=== PATIENT | female | born 1995 | race Caucasian/White ===

== ENCOUNTER 2016-11-25 22:40 | Observation (INO) | payer OTHER ==
--- NOTE | 2016-11-26 00:08 | ED ---
Psych HPI - General Source: patient, RN notes reviewed Mode of arrival: EMS <Tona Kebede - Last Filed: 11/26/16 04:12> <Pedro Bell - Last Filed: 11/26/16 04:29> - General Chief Complaint: Psychiatric Symptoms Stated Complaint: overdose Time Seen by Provider: 11/25/16 23:15 - History of Present Illness Initial Comments: Patient is a 20-year-old female presents to the emergency room for psych evaluation. Patient states she has a history of anxiety and depression. Patient states she was recently evicted from her apartment has been increasingly depressed. Patient states she feels like she is trapped and she will never move out from the hotel. Patient states today her depression escalated and she decided to take all of her iron pills in 1 sitting around 9PM. Patient states she took about 100 pills that are 65 mg per tab. Patient states she's having 6 out of 10 epigastric pain with slight nausea. Patient states she mainly took the pills as a cry for help. Patient states been having on-and-off suicidal ideations. Patient denies homicidal ideations. Patient denies visual or auditory hallucinations. Patient states she following up with a counselor every few weeks which was helping her. Patient states she hasn't seen her counselor in about a week. Patient also states she had about 4 shots of whiskey after taking the iron tabs. Patient also states she recently smoked marijuana. Patient denies any other illicit drug use. (Tona Kebede) - Related Data Home Medications Medication Instructions Recorded Confirmed No Known Home Medications [No 11/25/16 11/25/16 Known Home Medications] Allergies Allergy/AdvReac Type Severity Reaction Status Date / Time No Known Allergies Allergy Verified 11/25/16 23:21 Review of Systems ROS Other: All systems not noted in ROS Statement are negative. <Tona Kebede - Last Filed: 11/26/16 04:12> ROS Other: All systems not noted in ROS Statement are negative. <Pedro Bell - Last Filed: 11/26/16 04:29> ROS Statement: Those systems with pertinent positive or pertinent negative responses have been documented in the HPI. Past Medical History Past Medical History: No Reported History History of Any Multi-Drug Resistant Organisms: None Reported Past Surgical History: No Surgical Hx Reported Past Anesthesia/Blood Transfusion Reactions: No Reported Reaction Past Psychological History: Anxiety, Depression Smoking Status: Former smoker Past Alcohol Use History: Occasional Past Drug Use History: Marijuana - Past Family History Mother Family Medical History: No Reported History <Tona Kebede - Last Filed: 11/26/16 04:12> General Exam Limitations: no limitations General appearance: alert, in no apparent distress Head exam: Present: atraumatic, normocephalic, normal inspection Eye exam: Present: normal appearance ENT exam: Present: normal exam Neck exam: Present: normal inspection Respiratory exam: Present: normal lung sounds bilaterally. Absent: respiratory distress Cardiovascular Exam: Present: regular rate, normal rhythm, normal heart sounds GI/Abdominal exam: Present: soft, tenderness (Upper midepigastric), normal bowel sounds. Absent: distended, guarding, rebound, rigid Extremities exam: Present: normal inspection Back exam: Present: normal inspection Neurological exam: Present: alert, oriented X3, CN II-XII intact, normal gait Psychiatric exam: Present: normal affect, normal mood Skin exam: Present: warm, dry, intact, normal color. Absent: rash <Tona Kebede - Last Filed: 11/26/16 04:12> <Pedro Bell - Last Filed: 11/26/16 04:29> - General Exam Comments Initial Comments: Sitting in exam room, no acute distress. (Tona Kebede) Course <Tona Kebede - Last Filed: 11/26/16 04:12> <Pedro Bell - Last Filed: 11/26/16 04:29> Vital Signs 11/25/16 11/26/16 23:00 04:04 Temperature 98.3 F 98.7 F Pulse Rate 95 82 Respiratory 18 18 Rate Blood Pressure 134/88 125/61 O2 Sat by Pulse 95 98 Oximetry - Reevaluation(s) Reevaluation #1: 11/26/16 04:28 I did personally evaluate the patient tolerated do agree with the assessment and plan the patient is asymptomatic and at this time . (Pedro Bell) Medical Decision Making - Lab Data Result diagrams: 11/26/16 00:51 - Radiology Data Radiology results: report reviewed, image reviewed <Tona Kebede - Last Filed: 11/26/16 04:12> - Lab Data Result diagrams: 11/26/16 00:51 <Pedro Bell - Last Filed: 11/26/16 04:29> - Medical Decision Making Patient's 20-year-old female presents to the emergency room for psychiatric evaluation. Patient has a history of anxiety and depression. Patient states she overdosed on iron pills around 9 PM this evening. Poison control was contacted. Poison control advised to order serum alcohol level, CMP, urinalysis , salicylates and acetaminophen and iron levels 6 hours after ingestion of iron pills. Patient's iron level is elevated at 364. Patient will be admitted under observation. Patient complaining of minor epigastric pain at the moment. Poison control recommended that patient take GoLYTELY. Poison control recommended that iron level be checked every 2-3 hours. Case discussed with Dr. Bell. Patient will need to be reevaluated by psych as soon as iron levels are controlled. (Tona Kebede) - Lab Data Lab Results 11/25/16 11/25/16 11/25/16 Range/Units 23:01 23:01 23:01 Sodium (137-145) mmol/L Potassium (3.5-5.1) mmol/L Chloride (98-107) mmol/L Carbon Dioxide (22-30) mmol/L Anion Gap mmol/L BUN (7-17) mg/dL Creatinine (0.52-1.04) mg/dL Est GFR (MDRD) Af Amer (>60 ml/min/1.73 sqM) Est GFR (MDRD) Non-Af (>60 ml/min/1.73 sqM) Glucose (74-99) mg/dL Calcium (8.4-10.2) mg/dL Iron (37-170) ug/dL Total Bilirubin (0.2-1.3) mg/dL AST (14-36) U/L ALT (9-52) U/L Alkaline Phosphatase (38-126) U/L Total Protein (6.3-8.2) g/dL Albumin (3.5-5.0) g/dL Urine Color Light Yellow Urine Appearance Clear (Clear) Urine pH 5.5 (5.0-8.0) Ur Specific [place] 1.007 (1.001-1.035) Urine Protein Negative (Negative) Urine Glucose (UA) Negative (Negative) Urine Ketones Negative (Negative) Urine Blood Negative (Negative) Urine Nitrite Negative (Negative) Urine Bilirubin Negative (Negative) Urine Urobilinogen <2.0 (<2.0) mg/dL Ur Leukocyte Esterase Negative (Negative) Urine HCG, Qual Not Detected (Not Detectd) Salicylates mg/dL Urine Opiates Screen Not Detected (NotDetected) Ur Oxycodone Screen Not Detected (NotDetected) Urine Methadone Screen Not Detected (NotDetected) Ur Propoxyphene Screen Not Detected (NotDetected) Acetaminophen ug/mL Ur Barbiturates Screen Not Detected (NotDetected) U Tricyclic Antidepress Not Detected (NotDetected) Ur Phencyclidine Scrn Not Detected (NotDetected) Ur Amphetamines Screen Not Detected (NotDetected) U Methamphetamines Scrn Not Detected (NotDetected) U Benzodiazepines Scrn Not Detected (NotDetected) Urine Cocaine Screen Not Detected (NotDetected) U Marijuana (THC) Screen Detected H (NotDetected) Serum Alcohol mg/dL 11/26/16 11/26/16 Range/Units 00:51 03:25 Sodium 141 (137-145) mmol/L Potassium 4.0 (3.5-5.1) mmol/L Chloride 104 (98-107) mmol/L Carbon Dioxide 26 (22-30) mmol/L Anion Gap 11 mmol/L BUN 13 (7-17) mg/dL Creatinine 0.60 (0.52-1.04) mg/dL Est GFR (MDRD) Af Amer >60 (>60 ml/min/1.73 sqM) Est GFR (MDRD) Non-Af >60 (>60 ml/min/1.73 sqM) Glucose 104 H (74-99) mg/dL Calcium 9.8 (8.4-10.2) mg/dL Iron 364 H (37-170) ug/dL Total Bilirubin 0.3 (0.2-1.3) mg/dL AST 19 (14-36) U/L ALT 27 (9-52) U/L Alkaline Phosphatase 59 (38-126) U/L Total Protein 7.6 (6.3-8.2) g/dL Albumin 4.4 (3.5-5.0) g/dL Urine Color Urine Appearance (Clear) Urine pH (5.0-8.0) Ur Specific [place] (1.001-1.035) Urine Protein (Negative) Urine Glucose (UA) (Negative) Urine Ketones (Negative) Urine Blood (Negative) Urine Nitrite (Negative) Urine Bilirubin (Negative) Urine Urobilinogen (<2.0) mg/dL Ur Leukocyte Esterase (Negative) Urine HCG, Qual (Not Detectd) Salicylates <1.0 mg/dL Urine Opiates Screen (NotDetected) Ur Oxycodone Screen (NotDetected) Urine Methadone Screen (NotDetected) Ur Propoxyphene Screen (NotDetected) Acetaminophen <10.0 ug/mL Ur Barbiturates Screen (NotDetected) U Tricyclic Antidepress (NotDetected) Ur Phencyclidine Scrn (NotDetected) Ur Amphetamines Screen (NotDetected) U Methamphetamines Scrn (NotDetected) U Benzodiazepines Scrn (NotDetected) Urine Cocaine Screen (NotDetected) U Marijuana (THC) Screen (NotDetected) Serum Alcohol <10 mg/dL Disposition Decision Date: 11/26/16 <Tona Kebede - Last Filed: 11/26/16 04:12> <Pedro Bell - Last Filed: 11/26/16 04:29> Clinical Impression: Iron product overdose, Depression Disposition: ADMITTED IP TO THIS [facility] Condition: Stable
[2016-11-26 01:13] LABS: ALT 27 U/L (9-52); AST 19 U/L (14-36); Acetaminophen <10.0 ug/mL; Alcohol <10 mg/dL; Alkaline Phosphatase 59 U/L (38-126); Anion Gap 11 mmol/L; Blood Urea Nitrogen 13 mg/dL (7-17); Calcium 9.8 mg/dL (8.4-10.2); Carbon Dioxide 26 mmol/L (22-30); Chloride 104 mmol/L (98-107); Glucose 104 mg/dL (74-99); Non-African American GFR(MDRD) >60 (>60 ml/min/1.73 sqM); Salicylate <1.0 mg/dL; Sodium 141 mmol/L (137-145); Total Bilirubin 0.3 mg/dL (0.2-1.3); Total Protein 7.6 g/dL (6.3-8.2)
[2016-11-26 01:20] LABS: Appearance,Urine Clear (Clear); Bilirubin,Urine Negative (Negative); Glucose,Urine (UA) Negative (Negative); Ketones,Urine Negative (Negative); Leukocyte Esterase,Urine Negative (Negative); Nitrite,Urine Negative (Negative); PH, Urine 5.5 (5.0-8.0); Protein,Urine Negative (Negative); Specific Gravity,Urine 1.007 (1.001-1.035); UA Billing (MACRO vs. MICRO) CHEM; Urobilinogen,Urine <2.0 mg/dL (<2.0)
[2016-11-26] MEDS ORDERED: PEG 3350-NA SULF,BICARB,CL/KCL 4,000 ML BOTTLE PO ONE (01:23)
--- NOTE | 2016-11-26 01:23 | XR ---
EXAM: XR Abdomen, 1 view CLINICAL HISTORY: Reason: Pain TECHNIQUE: Frontal view of the abdomen/pelvis with upright view of the abdomen. COMPARISON: No relevant prior studies available. FINDINGS: Free air: None. Gastrointestinal tract: Unremarkable. No dilation. Bones: Unremarkable. No acute fracture. IMPRESSION: Normal abdomen and pelvis.
[2016-11-26] MEDS ORDERED: ONDANSETRON 4 MG/2 ML VIAL IVP PRN (04:09)
[2016-11-26] MEDS ORDERED: NALOXONE 0.4 MG/ML 1 ML VIAL IV PRN (04:09)
[2016-11-26] MEDS ORDERED: SODIUM CHLORIDE 0.9% 1,000 ML IV SCH (04:15)
[2016-11-26 04:53] VITALS: BMI 31.1
[2016-11-26 05:14] VITALS: RESP 16
[2016-11-26 06:01] LABS: Anion Gap 12 mmol/L; Blood Urea Nitrogen 12 mg/dL (7-17); Calcium 9.7 mg/dL (8.4-10.2); Carbon Dioxide 24 mmol/L (22-30); Chloride 104 mmol/L (98-107); Glucose 102 mg/dL (74-99); Iron 341 ug/dL (37-170); Non-African American GFR(MDRD) >60 (>60 ml/min/1.73 sqM); Potassium 3.9 mmol/L (3.5-5.1); Sodium 140 mmol/L (137-145)
[2016-11-26 11:45] LABS: Basophils % (A) 1 %; CH 29.4; CHCM 32.5; Eosinophils # (A) 0.1 k/uL (0-0.7); Eosinophils % (A) 2 %; HCT 40.7 % (34.0-46.0); HDW 2.27; HGB 13.4 gm/dL (11.4-16.0); Luc # (Auto) 0.19; Luc % (Auto) 3; Lymphocytes # (A) 2.6 k/uL (1.0-4.8); Lymphocytes % (A) 36 %; Mean Platelet Volume 6.4; Monocytes # (A) 0.5 k/uL (0-1.0); Monocytes % (A) 7 %; Neutrophils # (A) 3.8 k/uL (1.3-7.7); Neutrophils % (A) 53 %; RBC 4.48 m/uL (3.80-5.40); RDW 14.1 % (11.5-15.5); WBC 7.2 k/uL (3.8-10.6)
[2016-11-26 11:47] VITALS: PULSE 84
[2016-11-26 11:56] LABS: ALT 18 U/L (9-52); AST 18 U/L (14-36); Alkaline Phosphatase 50 U/L (38-126); Anion Gap 9 mmol/L; Blood Urea Nitrogen 13 mg/dL (7-17); Calcium 9.4 mg/dL (8.4-10.2); Carbon Dioxide 23 mmol/L (22-30); Chloride 106 mmol/L (98-107); Glucose 92 mg/dL (74-99); Non-African American GFR(MDRD) >60 (>60 ml/min/1.73 sqM); Potassium 4.4 mmol/L (3.5-5.1); Sodium 138 mmol/L (137-145); Total Bilirubin 0.4 mg/dL (0.2-1.3)
[2016-11-26 12:05] LABS: Iron 153 ug/dL (37-170)
[2016-11-26 16:08] VITALS: BP 139/63; TEMP 98.7
--- NOTE | 2016-11-26 18:47 | HP ---
DATE OF ADMISSION: 11/26/2016 This 20-year-old woman who was being followed by Dr. Myrick had a past medical history of depression, history of anxiety, history of THC, remote history of nicotine dependence. The patient apparently living in a hotel with the family because of living situation, the patient consumed a whole bottle of iron tablets and most 100 pills of 65 mg each. The patient came in with severe epigastric pain, nausea. Patient admitted for further evaluation and treatment. There is no history of fever, rigors or chills. No history of headache, loss of consciousness or seizures at this time. Poison control was called. Iron level was found to be 341 indicating iron overload. Otherwise, the patient is being closely monitored. Past medical history: History of anxiety, depression, history of nicotine dependence. History of THC. The home medications are none. ALLERGIES: None. FAMILY HISTORY: History of bipolar, depression, diabetes type 2. SOCIAL HISTORY: Previous history of smoking, history of THC. REVIEW OF SYSTEMS: ENT: No diminished vision. No diminished hearing. CARDIOVASCULAR: No angina or palpitations. RESPIRATORY: no cough. GI: As mentioned earlier. : No dysuria. Nervous system: no numbness or weakness. ALLERGY/IMMUNOLOGY: No asthma or hayfever. MUSCULOSKELETAL: As mentioned earlier. HEMATOLOGY: No history of anemia. ENDOCRINE: No history of diabetes, hypothyroidism. CONSTITUTIONAL: as mentioned earlier. DERMATOLOGY: Negative. RHEUMATOLOGY: Negative. PSYCHIATRY: As mentioned earlier. PHYSICAL EXAMINATION: Alert and oriented times three. Pulse is 84, blood pressure 110/58, respirations 16, temperature 98.4. Pulse ox 97% on room air. HEENT: Conjunctivae normal. NECK: No jugular venous distention. CARDIOVASCULAR: S1, S2 normal. RESPIRATORY: Breaths sounds diminished in the bases. A few rhonchi. No crackles. ABDOMEN: Soft, nontender. No mass palpable. LEGS: No edema. No swelling. Nervous system: Higher functions as mentioned earlier. Moves all four limbs. No focal deficits. LYMPHATICS: No lymph nodes palpable in the neck, axillae or groin. SKIN: No ulcer, rash or bleeding. Labs are CBC, BMP within normal limits. Iron 223. ASSESSMENT: 1. Status post over dosage with iron pills. 2. High serum iron levels. 3. Anxiety, depression, not otherwise specified. 4. History of nicotine dependence. 5. History of THC. 6. FULL CODE. RECOMMENDATIONS AND DISCUSSION: In this 20-year-old woman who presented with multiple complex medical issues, we will monitor the patient closely. Continue the current medications. Continue symptomatic treatment. Otherwise, at this time, I recommend psychiatric consultation and continue to follow with poison control. Repeat iron levels. Prognosis guarded because of multiple complex medical issues. Further recommendations to follow. A copy of dictation being forwarded to Dr. Myrick who is the primary physician. ERIKAD
--- NOTE | 2016-11-27 09:45 | DS ---
DATE OF ADMISSION: 11/26/2016 DATE OF DISCHARGE: 11/26/2016 FINAL DIAGNOSES: 1. Acute iron tablet overdose. 2. Depression. 3. Anxiety, not otherwise specified. 4. Nicotine dependence. 5. History of tetrahydrocannabinol. DISCHARGE DISPOSITION: The patient is being transferred to inpatient mental health unit. HISTORY OF PRESENT ILLNESS: This 20-year-old woman was admitted with acute iron overdosage and poisoning and iron level of 341 improved to 153. Poison control was contacted. The patient improved significantly. Psychiatric recommended inpatient psych transfer. On exam, vitals are stable. CARDIOVASCULAR: S1, S2. ABDOMEN: Soft. NERVOUS SYSTEM: No focal deficits. Please refer to the medication reconciliation for the current medication list.
== END 2016-11-26 17:25 ==
LOC: EC 22:40 → 3OBS 11-26 04:09
PROVIDERS: ADMIT Hospitalist; ATTEND Hospitalist
DX: T45.4X2A Poisoning by iron and its compounds, intentional self-harm, initial encounter (principal); R11.0 Nausea; F12.90 Cannabis use, unspecified, uncomplicated; F17.200 Nicotine dependence, unspecified, uncomplicated; F32.9 Major depressive disorder, single episode, unspecified; R45.851 Suicidal ideations; R10.13 Epigastric pain
CPT/HCPCS: 99285 ×2; 82075; 36415; 80053; 80048; 83540; 85025; 81003; 81025; 80306; 83520 ×2; 80320; 74000; G0378

== ENCOUNTER 2016-11-26 17:09 | Inpatient (IN) | payer MEDICAID ==
[2016-11-26 17:31] VITALS: RESP 16
[2016-11-26 18:00] VITALS: BMI 31.8
[2016-11-26] MEDS ORDERED: MAGNESIUM HYDROXIDE 2,400 MG/10 ML CUP PO PRN (18:19)
[2016-11-26] MEDS ORDERED: LORazepam 1 MG TAB PO PRN (18:19)
[2016-11-26] MEDS ORDERED: MAG HYDROX/AL HYDROX/SIMETH 30 ML CUP PO PRN (18:19)
[2016-11-26] MEDS ORDERED: ACETAMINOPHEN TAB 325 MG TAB PO PRN (18:19)
[2016-11-27] MEDS: CITALOPRAM HYDROBROMIDE 20 MG TAB PO SCH (11:36)
[2016-11-27 15:43] LABS: Appearance,Urine Clear (Clear); Bilirubin,Urine Negative (Negative); Glucose,Urine (UA) Negative (Negative); Ketones,Urine 1+ (Negative); Leukocyte Esterase,Urine Small (Negative); Mucus,Urine Rare /hpf; Nitrite,Urine Negative (Negative); PH, Urine 5.5 (5.0-8.0); Particle Count 3250; Protein,Urine Negative (Negative); RBC,Urine 2 /hpf (0-5); Specific Gravity,Urine 1.009 (1.001-1.035); Squamous Epithelial Cell,Urine 3 /hpf (0-4); UA Billing (MACRO vs. MICRO) MICRO; Urobilinogen,Urine <2.0 mg/dL (<2.0); WBC,Urine 3 /hpf (0-5)
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
[2016-11-27] MEDS: PANTOPRAZOLE 40 MG TABLET PO SCH (18:58)
[2016-11-27] MEDS ORDERED: traZODone HCL 50 MG TAB PO SCH (21:00)
[2016-11-27] MEDS: SULFAMETHOX-TMP 800-160MG 1 EACH TAB PO SCH (22:06)
[2016-11-28 06:58] VITALS: BP 106/53; PULSE 92; TEMP 98.2
--- NOTE | 2016-11-28 07:35 | CONS ---
DATE OF CONSULTATION: REASON FOR CONSULTATION: Advice regarding history of recent iron overdose and other medical issues requested by Psychiatry. HISTORY OF PRESENT ILLNESS: This 20-year-old woman with a past medical history of multiple medical problems including anxiety and depression, history of nicotine dependence, history of THC being followed with Dr. Myrick in the outpatient setting was recently admitted with acute iron tablet overdosage to [facility]. The patient was monitored closely. Poison Control was contacted. Iron levels came down. The patient is being transferred to psych floor at this time. There is no history of any fevers. No history of headache, loss of consciousness or seizures. PAST MEDICAL HISTORY: History of anxiety, depression, nicotine dependence, THC. MEDICATIONS PRIOR TO ADMISSION: None. ALLERGIES: None. FAMILY HISTORY: History of diabetes mellitus and bipolar depression. SOCIAL HISTORY: History of smoking. History of EtOH. REVIEW OF SYSTEMS: ENT: No diminishing hearing or diminished vision. CARDIOVASCULAR: No angina or palpitations. RESPIRATORY: No cough or hemoptysis. GI: No nausea. : No dysuria. NERVOUS SYSTEM: No numbness or weakness. ALLERGY/IMMUNOLOGY: No asthma. MUSCULOSKELETAL: As mentioned earlier. HEMATOLOGY/ONCOLOGY: No history of anemia. ENDOCRINE: No history of diabetes mellitus or hypothyroidism. CONSTITUTIONAL: As mentioned earlier. DERMATOLOGY: Negative. RHEUMATOLOGY: Negative. PSYCHIATRY: As mentioned earlier. PHYSICAL EXAMINATION: The patient is alert and oriented x3. Pulse 84, blood pressure 110/60, respirations 16, temperature 98.1, pulse ox 98% on room air. HEENT: Conjunctivae normal. NECK: No jugular venous distention. CARDIOVASCULAR: S1 and S2, muffled. RESPIRATORY: Breath sounds diminished at the bases. No rhonchi, no crackles. ABDOMEN: Soft, nontender. No mass palpable. No guarding or rigidity. LEGS: No edema, no swelling. NERVOUS SYSTEM: Cranial nerves 2 through 12 grossly intact. Moves all 4 limbs. Power is normal. Reflexes are normal. No sensory . Gait is normal. SKIN: No ulcers, rashes or bleeding. LABS: TSH is 1.460 and showed leukocyte esterase. ASSESSMENT: 1. Status post overdose and acute iron overdose. 2. Depression. 3. Anxiety, not otherwise specified. 4. History nicotine dependence. 5. History of THC. 6. Possible urinary tract infection. RECOMMENDATIONS AND DISCUSSION: In this 20-year-old woman who presented with multiple medical problems, will monitor the patient closely. Continue the current medications. Continue symptomatic treatment. I would also recommend continue with current medication and short course of antibiotics may be recommended. Otherwise Protonix also may be continued. Will follow the patient closely with you and patient was asked to follow with Dr. Myrick closely after discharge. MOE
[2016-11-28] MEDS: CITALOPRAM HYDROBROMIDE 20 MG TAB PO SCH (09:38)
[2016-11-28] MEDS: PANTOPRAZOLE 40 MG TABLET PO SCH (09:38)
[2016-11-28] MEDS: SULFAMETHOX-TMP 800-160MG 1 EACH TAB PO SCH (09:39)
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
== END 2016-11-28 17:20 | disposition home or self-care (01) | DRG 881 ==
LOC: 3MHU 17:26
PROVIDERS: ADMIT Psychiatry & Neurology Psychiatry; ATTEND Psychiatry & Neurology Psychiatry
DX: F32.9 Major depressive disorder, single episode, unspecified (principal); F12.90 Cannabis use, unspecified, uncomplicated; F43.10 Post-traumatic stress disorder, unspecified; Z87.891 Personal history of nicotine dependence; Z91.5 Personal history of self-harm
CPT/HCPCS: 81001; 81025; 84443

== ENCOUNTER 2019-04-25 09:06 | Inpatient (IN) | payer OTHER ==
[2019-04-25] MEDS ORDERED: LIDOCAINE 0.5% (PF) 5 MG/ML (50 ML SDV) SQ PRN (09:44)
[2019-04-25] MEDS ORDERED: CARBOPROST TROMETHAMINE 250 MCG/ML 1 ML AMP IM PRN (09:44)
[2019-04-25] MEDS ORDERED: TERBUTALINE 1 MG/ML VIAL SQ PRN (09:44)
[2019-04-25] MEDS ORDERED: OXYTOCIN 10 UNIT/ML 1 ML VIAL IM PRN (09:44)
[2019-04-25] MEDS ORDERED: METHYLERGONOVINE 0.2 MG/ML 1 ML AMP IM PRN (09:44)
[2019-04-25] MEDS ORDERED: OXYTOCIN 30 UNITS/500 ML NS 30 UNIT in SALINE 1 500ML.BAG IV SCH (09:45)
[2019-04-25 10:31] VITALS: BMI 40.6
[2019-04-25] MEDS: LACTATED RINGERS 1,000 ML IV SCH ×2 (10:33→12:49)
[2019-04-25 10:56] LABS: Anisocytosis Slight; Basophils % (A) 0 %; Eosinophils # (A) 0.1 k/uL (0-0.7); Eosinophils % (A) 1 %; HCT 34.4 % (34.0-46.0); HGB 10.8 gm/dL (11.4-16.0); Lymphocytes % (A) 17 %; MCH 27.1 pg (25.0-35.0); MCHC 31.3 g/dL (31.0-37.0); MCV 86.6 fL (80.0-100.0); Monocytes # (A) 0.5 k/uL (0-1.0); Monocytes % (A) 4 %; Neutrophils # (A) 9.1 k/uL (1.3-7.7); Neutrophils % (A) 76 %; Platelet Count 348 k/uL (150-450); RBC 3.97 m/uL (3.80-5.40); RDW 16.8 % (11.5-15.5); WBC 11.9 k/uL (3.8-10.6)
[2019-04-25] MEDS ORDERED: ROPIVACAINE 5MG/ML 20ML VIAL ONE (12:23)
[2019-04-25] MEDS ORDERED: SODIUM CHLORIDE 0.9% 100 ML BAG ONE (12:23)
[2019-04-25] MEDS ORDERED: fentaNYL (PF) 50 MCG/ML 5 ML AMP ONE (12:23)
--- NOTE | 2019-04-25 13:16 | P.HPOB ---
History of Present Illness H&P Date: 04/25/19 Chief Complaint: labor 23 year old presents at 40 weeks 5 days in labor. HEr cervix is 5/100/-1 and she is teresa every few minutes. heart tones 120 with moderate variability and reactive. Review of Systems All systems: negative Constitutional: Denies chills, Denies fever Eyes: denies blurred vision, denies pain Ears, nose, mouth and throat: Denies headache, Denies sore throat Cardiovascular: Denies chest pain, Denies shortness of breath Respiratory: Denies cough Gastrointestinal: Denies abdominal pain, Denies diarrhea, Denies nausea, Denies vomiting Genitourinary: Denies dysuria, Denies hematuria Musculoskeletal: Denies myalgias Integumentary: Denies pruritus, Denies rash Neurological: Denies numbness, Denies weakness Psychiatric: Denies anxiety, Denies depression Endocrine: Denies fatigue, Denies weight change Past Medical History Past Medical History: No Reported History Additional Past Medical History / Comment(s): OB history: 1st vaginal delivery 41 weeks 7 pounds 9 ounces. This is her second and she has had care with pr since 13 weeks. O+, abs neg, Rub Imm, RPR NR, Hep B neg, HIV NR. History of Any Multi-Drug Resistant Organisms: None Reported Past Surgical History: No Surgical Hx Reported Past Anesthesia/Blood Transfusion Reactions: No Reported Reaction Past Psychological History: Anxiety, Depression Smoking Status: Never smoker Past Alcohol Use History: Occasional Past Drug Use History: Marijuana - Past Family History Mother Family Medical History: Diabetes Mellitus Additional Family Medical History / Comment(s): Bipolar, depression Father Additional Family Medical History / Comment(s): substance abuse, heart disease Brother(s) Additional Family Medical History / Comment(s): Hypotension Medications and Allergies Home Medications Medication Instructions Recorded Confirmed Type No Known Home Medications 04/25/19 04/25/19 History Allergies Allergy/AdvReac Type Severity Reaction Status Date / Time No Known Allergies Allergy Verified 04/25/19 09:20 Exam Osteopathic Statement: *. No significant issues noted on an osteopathic structural exam other than those noted in the History and Physical/Consult. Vital Signs Temp Pulse Resp BP Pulse Ox 04/25/19 09:38 97.1 F L 79 20 136/62 98 Intake and Output 04/24/19 04/25/19 04/25/19 22:59 06:59 14:59 Other: Weight 100.698 kg HEart: RRR Lungs: CTAB ABdomen: soft, nontender Extremeties: neg bebeto's Results Result Diagrams: 04/25/19 10:30 Abnormal Lab Results - Last 24 Hours (Table) 04/25/19 Range/Units 10:30 WBC 11.9 H (3.8-10.6) k/uL Hgb 10.8 L (11.4-16.0) gm/dL RDW 16.8 H (11.5-15.5) % Neutrophils # 9.1 H (1.3-7.7) k/uL Assessment and Plan (1) Normal labor Current Visit: Yes Status: Acute Code(s): O80 - ENCOUNTER FOR FULL-TERM UNCOMPLICATED DELIVERY; Z37.9 - OUTCOME OF DELIVERY, UNSPECIFIED SNOMED Code(s): 64936326 Plan: 1. expectant management 2. anticipate normal vaginal delivery
[2019-04-25] MEDS ORDERED: diphenhydrAMINE 25 MG CAP PO PRN (16:00)
[2019-04-25] MEDS ORDERED: LANOLIN CREAM 5 GM TUBE TOPICAL PRN (16:00)
[2019-04-25] MEDS ORDERED: diphenhydrAMINE 50 MG/ML 1 ML VIAL IVP PRN ×2 (16:00)
[2019-04-25] MEDS ORDERED: SIMETHICONE 80 MG CHEWABLE PO PRN (16:00)
[2019-04-25] MEDS ORDERED: ZOLPIDEM 5 MG TAB PO PRN (16:00)
[2019-04-25] MEDS ORDERED: WITCH HAZEL 1 EACH MED..PAD TOPICAL PRN (16:00)
[2019-04-25] MEDS ORDERED: OXYTOCIN 20 UNITS/1000 ML NS 1,000 ML IV SCH (16:00)
[2019-04-25] MEDS ORDERED: diphenhydrAMINE 50 MG CAP PO PRN (16:00)
[2019-04-25] MEDS ORDERED: HYDROCORTISONE 2.5% RECTAL CREAM 30 GM TUBE RECTAL PRN (16:00)
[2019-04-25] MEDS ORDERED: BENZOCAINE/MENTHOL SPRAY 1 GM/SPRAY AEROSOL TOPICAL PRN (16:00)
[2019-04-25] MEDS ORDERED: ACETAMINOPHEN TAB 325 MG TAB PO PRN (16:00)
[2019-04-25] MEDS: IBUPROFEN 600 MG TAB PO PRN (18:38)
[2019-04-25] MEDS: SENNOSIDES-DOCUSATE SODIUM 1 EACH TAB PO SCH (22:56)
[2019-04-26] MEDS: IBUPROFEN 600 MG TAB PO PRN ×3 (05:35→20:16)
[2019-04-26 07:27] LABS: Anisocytosis Slight; Basophils % (A) 0 %; Eosinophils # (A) 0.1 k/uL (0-0.7); Eosinophils % (A) 1 %; HCT 31.1 % (34.0-46.0); HGB 10.2 gm/dL (11.4-16.0); Lymphocytes # (A) 2.4 k/uL (1.0-4.8); Lymphocytes % (A) 23 %; MCHC 32.7 g/dL (31.0-37.0); MCV 85.8 fL (80.0-100.0); Mean Platelet Volume 6.6; Monocytes # (A) 0.5 k/uL (0-1.0); Monocytes % (A) 5 %; Neutrophils # (A) 7.3 k/uL (1.3-7.7); Neutrophils % (A) 70 %; Platelet Count 272 k/uL (150-450); RBC 3.63 m/uL (3.80-5.40); RDW 16.3 % (11.5-15.5); WBC 10.4 k/uL (3.8-10.6)
[2019-04-26] MEDS: SENNOSIDES-DOCUSATE SODIUM 1 EACH TAB PO SCH ×2 (08:04→20:17)
--- NOTE | 2019-04-26 08:35 | P.PROBDLV ---
Vaginal Delivery Note - . Vaginal Delivery Note: 23 year old presents at 40 weeks 5 days in labor. HEr cervix is 5/100/-1 and she is teresa every few minutes. heart tones 120 with moderate variability and reactive. After an IV was started on a did perform an amniotomy at 10:49 AM and clear fluid noted. Patient was uncomfortable and did get an epidural. Her cervix was completely dilated at 1459. She pushed, and delivered a viable female over intact perineum under epidural anesthesia at 1523. Head delivered OA, anterior shoulder delivered gentle downward guidance of the posterior shoulder and rest of body. Nose and mouth bulb suctioned, cord clamped and cut, placed mother's abdomen. Apgars 9, 9, weight 8 lbs. 1 oz. Placenta delivered spontaneously, intact with three-vessel cord at 1525. Vagina, cervix, perineum inspected. First-degree midline laceration was repaired with 3-0 Vicryl. Estimated blood loss 200 mL. Mother and baby in stable condition.
--- NOTE | 2019-04-26 08:37 | P.DS ---
Providers Date of admission: 04/25/19 09:41 Expected date of discharge: 04/26/19 Attending physician: Yris Sanchez Primary care physician: Stated None - Discharge Diagnosis(es) (1) Normal labor Current Visit: Yes Status: Resolved (2) Normal vaginal delivery Current Visit: Yes Status: Acute Hospital Course: Patient presented in active labor. She underwent a normal vaginal delivery. Her course was uncomplicated. She'll be discharged home day #1 in stable condition to follow-up with me in 6 weeks. Plan - Discharge Summary New Discharge Prescriptions: New Ibuprofen [Motrin] 600 mg PO Q6HR PRN #30 tab PRN Reason: Mild Pain Or Fever >= 100.5 Discharge Medication List Ibuprofen [Motrin] 600 mg PO Q6HR PRN #30 tab 04/26/19 [Rx] Follow up Appointment(s)/Referral(s): Yris Sanchez DO [Doctor of Osteopathic Medicine] - 6 Weeks Discharge Disposition: HOME SELF-CARE
[2019-04-26 16:50] VITALS: RESP 16
[2019-04-27] MEDS: IBUPROFEN 600 MG TAB PO PRN (08:18)
[2019-04-27] MEDS: SENNOSIDES-DOCUSATE SODIUM 1 EACH TAB PO SCH (08:18)
[2019-04-27 08:51] VITALS: BP 134/82; PULSE 68; TEMP 98.2
== END 2019-04-27 10:35 | disposition home or self-care (01) | DRG 807 ==
LOC: FBPOP 09:06 → 4FBP 09:41
PROVIDERS: ADMIT Obstetrics & Gynecology; ATTEND Obstetrics & Gynecology
PROC: 10E0XZZ Delivery of Products of Conception, External Approach (ICD-10-PCS; principal; 2019-04-25)
PROC: 0HQ9XZZ Repair Perineum Skin, External Approach (ICD-10-PCS; 2019-04-25)
PROC: 00HU33Z Insertion of Infusion Device into Spinal Canal, Percutaneous Approach (ICD-10-PCS; 2019-04-25)
PROC: 3E0R3BZ Introduction of Anesthetic Agent into Spinal Canal, Percutaneous Approach (ICD-10-PCS; 2019-04-25)
DX: O99.62 Diseases of the digestive system complicating childbirth (principal); Z37.0 Single live birth; O70.0 First degree perineal laceration during delivery; O99.344 Other mental disorders complicating childbirth; K21.9 Gastro-esophageal reflux disease without esophagitis; F32.9 Major depressive disorder, single episode, unspecified; F41.9 Anxiety disorder, unspecified; Z3A.40 40 weeks gestation of pregnancy; Z81.8 Family history of other mental and behavioral disorders; Z83.3 Family history of diabetes mellitus
CPT/HCPCS: 59025; 85025; 86850; 86900; 86901; 99213

== ENCOUNTER 2019-08-16 07:12 | Day surgery (SDC) | payer OTHER ==
[2019-08-08 11:08] VITALS: BMI 34.7
[~2019-08-16 07:12] MED LIST: DEXAMETHASONE SOD PHOSPHATE 10 MG/ML 1 ML VIAL IV ONE; LACTATED RINGERS 1,000 ML IV SCH; LIDOCAINE 1% 20 ML VIAL (10MG/ML) FOR IV START INTRADERMA PRN; MIDAZOLAM 2 MG/2 ML VIAL IV PRN; ONDANSETRON 4 MG/2 ML VIAL IVP ONE; Pre Op ABX Message 1 EACH MISC MISCELLANE ONE; SCOPOLAMINE 1.5MG/72HR PATCH TRANSDERM ONE
[2019-08-16 07:27] VITALS: RESP 16
--- NOTE | 2019-08-16 07:49 | P.HPOB ---
History of Present Illness H&P Date: 08/16/19 Chief Complaint: laparoscopic tubal ligation 23 year old presents for laparoscopic tubal ligation. Review of Systems All systems: negative Constitutional: Denies chills, Denies fever Eyes: denies blurred vision, denies pain Ears, nose, mouth and throat: Denies headache, Denies sore throat Cardiovascular: Denies chest pain, Denies shortness of breath Respiratory: Denies cough Gastrointestinal: Denies abdominal pain, Denies diarrhea, Denies nausea, Denies vomiting Genitourinary: Denies dysuria, Denies hematuria Musculoskeletal: Denies myalgias Integumentary: Denies pruritus, Denies rash Neurological: Denies numbness, Denies weakness Psychiatric: Denies anxiety, Denies depression Endocrine: Denies fatigue, Denies weight change Past Medical History Past Medical History: No Reported History Additional Past Medical History / Comment(s): POST 04/25/19- BREAST FEEDING. History of Any Multi-Drug Resistant Organisms: None Reported Past Surgical History: No Surgical Hx Reported Past Anesthesia/Blood Transfusion Reactions: Motion Sickness Additional Past Anesthesia/Blood Transfusion Reaction / Comment(s): PATIENT HAS NEVER RECEIVED ANESTHESIA Past Psychological History: Anxiety, Depression Additional Psychological History / Comment(s): NO CURRENT MEDS. Smoking Status: Former smoker Past Alcohol Use History: Occasional Additional Past Alcohol Use History / Comment(s): smoked for 3-4 yrs and quit 4- 5 yrs ago Past Drug Use History: Marijuana Additional Drug Use History / Comment(s): current marijuana use - Past Family History Mother Family Medical History: Diabetes Mellitus Additional Family Medical History / Comment(s): Bipolar, depression Father Additional Family Medical History / Comment(s): substance abuse, heart disease Brother(s) Additional Family Medical History / Comment(s): Hypotension Medications and Allergies Home Medications Medication Instructions Recorded Confirmed Type Biotin (Unknown Dose) 1 tab PO DAILY 08/08/19 08/08/19 History Multivitamins, Thera [Multivitamin 1 tab PO DAILY 08/08/19 08/08/19 History (formulary)] Allergies Allergy/AdvReac Type Severity Reaction Status Date / Time No Known Allergies Allergy Verified 08/16/19 07:22 Exam Osteopathic Statement: *. No significant issues noted on an osteopathic structural exam other than those noted in the History and Physical/Consult. Vital Signs Temp Pulse Resp BP Pulse Ox 08/16/19 07:25 97.5 F L 84 16 119/68 100 Intake and Output 08/15/19 08/16/19 08/16/19 22:59 06:59 14:59 Other: Weight 87.2 kg Heart: Regular rate and rhythm Lungs: Clear to auscultation bilaterally Abdomen: Soft, nontender Extremities: Negative Homans sign Assessment and Plan (1) Family planning Current Visit: Yes Status: Acute Code(s): Z30.09 - ENCOUNTER FOR OT GENERAL CNSL AND ADVICE ON CONTRACEPTION SNOMED Code(s): 094911907 Plan: 1. Laparoscopic tubal ligation. All risks, benefits and alternatives were discussed with the patient.
[2019-08-16] MEDS ORDERED: fentaNYL (PF) 50 MCG/ML 2 ML AMP ONE (07:56)
[2019-08-16] MEDS ORDERED: PROPOFOL 10 MG/ML 20 ML VIAL IV ONE (07:56)
[2019-08-16] MEDS ORDERED: KETOROLAC 30 MG/ML 1 ML VIAL ONE (07:56)
[2019-08-16] MEDS ORDERED: LIDOCAINE 1% INJ 10MG/ML (20 ML MDV) ONE (07:56)
[2019-08-16] MEDS ORDERED: NEOSTIGMINE 1 MG/ML 10 ML VIAL ONE (07:56)
[2019-08-16] MEDS ORDERED: GLYCOPYRROLATE 0.2 MG/ML 2 ML VIAL ONE (07:56)
[2019-08-16] MEDS ORDERED: MIDAZOLAM 2 MG/2 ML VIAL ONE (07:56)
[2019-08-16] MEDS ORDERED: ROCURONIUM BROMIDE 10 MG/ML 10 ML VIAL IV ONE (07:56)
[2019-08-16] MEDS ORDERED: diphenhydrAMINE 50 MG/ML 1 ML VIAL ONE (07:56)
[2019-08-16] MEDS ORDERED: BUPIVACAINE (PF) 0.25% 30 ML VIAL SQ ONE ×2 (08:26→08:32)
[2019-08-16 08:50] VITALS: TEMP 96.9
--- NOTE | 2019-08-16 08:52 | P.OP ---
Date of Procedure: 08/16/19 Preoperative Diagnosis: 1. family planning Postoperative Diagnosis: 1. family planning Procedure(s) Performed: Laparoscopic tubal ligation Anesthesia: BILL Surgeon: Yris Sanchez Estimated Blood Loss (ml): 2 IV fluids (ml): 500 Urine output (ml): 10 Pathology: none sent Condition: stable Disposition: PACU Operative Findings: Normal uterus, tubes, ovaries. Description of Procedure: Patient was taken to the operating room where general anesthesia was obtained without difficulty. She was prepped and draped in normal sterile fashion in the dorsal lithotomy position, legs placed in the Marcel stirrups. Bladder drained of all urine. [place] speculum placed in the vagina and the anterior lip the cervix was grasped with single-tooth tenaculum. The uterus is sounded to 7 cm and the kroner manipulator was placed. Attention was then turned to the abdomen and gloves were changed. A 10 mm infraumbilical incision was made the scalpel and 10 mm optical trocar was placed under direct visualization. A 5 mm suprapubic Incision was made and a 5 mm optical trocar was placed under direct visualization. Survey of the pelvis revealed normal uterus tubes and ovaries. The left fallopian tube was grasped with a Kleppinger and fulgurated 2-3 cm on this side in the ampullar portion. The right fallopian tube was grasped with a Kleppinger and fulgurated 2-3 cm in the ampullar portion. All instruments were then removed from the abdomen and vagina. The 10 mm infraumbilical incision was closed with 0 Vicryl and the fascial layer and then 4-0 Vicryl in a subcuticular fashion. The 5 mm incision was closed with 4-0 Vicryl in a subcuticular fashion. Patient tolerated procedure well, sponge and instrument counts correct 2 and she was taken to recovery room in stable condition.
[2019-08-16] MEDS: HYDROmorphone 0.5 MG/0.5 ML SYRINGE IVP PRN ×2 (08:56→09:05)
[2019-08-16 09:52] VITALS: BP 101/68; PULSE 61
== END 2019-08-16 11:33 | disposition home or self-care (01) ==
LOC: OR 07:12
PROVIDERS: ATTEND Obstetrics & Gynecology
DX: Z30.2 Encounter for sterilization (principal); F41.9 Anxiety disorder, unspecified; F32.9 Major depressive disorder, single episode, unspecified; Z87.891 Personal history of nicotine dependence; Z83.3 Family history of diabetes mellitus; Z82.49 Family history of ischemic heart disease and other diseases of the circulatory system; Z81.8 Family history of other mental and behavioral disorders
CPT/HCPCS: 81025; 58670; J2250; J1200; J1100; J2710; J2405; J2001; J3010; J1885; J2704; J1170

== ENCOUNTER 2020-06-10 15:48 | Inpatient (IN) | payer MEDICAID, OTHER ==
[~2020-06-10 15:48] MED LIST changes: -DEXAMETHASONE SOD PHOSPHATE 10 MG/ML 1 ML VIAL IV ONE; +INFLUENZA VACCINE (6 MOS+) 60 MCG/0.5 ML SYRINGE IM ONE; -LACTATED RINGERS 1,000 ML IV SCH; -LIDOCAINE 1% 20 ML VIAL (10MG/ML) FOR IV START INTRADERMA PRN; -MIDAZOLAM 2 MG/2 ML VIAL IV PRN; -ONDANSETRON 4 MG/2 ML VIAL IVP ONE; -Pre Op ABX Message 1 EACH MISC MISCELLANE ONE; -SCOPOLAMINE 1.5MG/72HR PATCH TRANSDERM ONE
--- NOTE | 2020-06-10 16:21 | ED ---
General Adult HPI - General Chief complaint: Psychiatric Symptoms Stated complaint: mental health Time Seen by Provider: 06/10/20 15:59 Source: patient Mode of arrival: ambulatory Limitations: no limitations - History of Present Illness Initial comments: Dictation was produced using [employer] dictation software. please excuse any grammatical, word or spelling errors. This patient was cared for during a federal and state declared state of emergency secondary to Covid 19 Chief Complaint: 24-year-old female presents with depression and anxiety. History of Present Illness: 24 female she presents today with depression and anxiety. She states that over the last several weeks she's been having a hard time coping with her personal life. She isn't someone thing that stresses her out. She was been urged by her mother to seek medical attention however has not done so. She does have children. She left her children with her baby's father states that she come to the emergency room today. Patient states she has secondary complaints of episodic stabbing pain to her entire body. She denies any symptoms at this time. Patient also is complaining of insomnia. Patient's history of tubal ligation. She believes she needs to be on medications for depression and anxiety. She denies any suicidal or homicidal ideation. No visual or auditory hallucinations. The ROS documented in this emergency department record has been reviewed and confirmed by me. Those systems with pertinent positive or negative responses have been documented in the HPI. All other systems are other negative and/or noncontributory. PHYSICAL EXAM: General Impression: Alert and oriented x3, not in acute distress HEENT: Normocephalic atraumatic, extra-ocular movements intact, pupils equal and reactive to light bilaterally, mucous membranes moist. Cardiovascular: Heart regular rate and rhythm, tachycardic Chest: Able to complete full sentences, no retractions, no tachypnea, clear to auscultation bilaterally Abdomen: abdomen soft, non-tender, non-distended, no organomegaly Musculoskeletal: Pulses present and equal in all extremities, no peripheral edema Motor: no focal deficits noted Neurological: CN II-XII grossly intact, no focal motor or sensory deficits noted Skin: Intact with no visualized rashes Psych: Anxious, tearful ED course: 24-year-old female presents today with depression and anxiety. Upon arrival shows heart rate of 130, rest of vital signs within acceptable limits Heart rate was improved. Laboratory evaluation obtained showing no acute processes. Patient admitted for EPS. Patient evaluated by EPS . Patient will be admitted to inpatient psychiatry. - Related Data Home Medications Medication Instructions Recorded Confirmed No Known Home Medications 06/10/20 06/10/20 Allergies Allergy/AdvReac Type Severity Reaction Status Date / Time No Known Allergies Allergy Verified 06/10/20 15:57 Review of Systems ROS Statement: Those systems with pertinent positive or pertinent negative responses have been documented in the HPI. ROS Other: All systems not noted in ROS Statement are negative. Past Medical History Past Medical History: No Reported History Additional Past Medical History / Comment(s): POST 04/25/19- BREAST FEEDING. History of Any Multi-Drug Resistant Organisms: None Reported Past Surgical History: No Surgical Hx Reported Past Anesthesia/Blood Transfusion Reactions: Motion Sickness Additional Past Anesthesia/Blood Transfusion Reaction / Comment(s): PATIENT HAS NEVER RECEIVED ANESTHESIA Past Psychological History: Anxiety, Depression Smoking Status: Current some day smoker Past Alcohol Use History: Occasional Past Drug Use History: Marijuana - Past Family History Mother Family Medical History: Diabetes Mellitus Additional Family Medical History / Comment(s): Bipolar, depression Father Additional Family Medical History / Comment(s): substance abuse, heart disease Brother(s) Additional Family Medical History / Comment(s): Hypotension General Exam Limitations: no limitations Course Vital Signs 06/10/20 06/10/20 15:52 16:56 Temperature 97.9 F Pulse Rate 130 H 96 Respiratory 18 Rate Blood Pressure 145/78 O2 Sat by Pulse 98 100 Oximetry Medical Decision Making - Lab Data Result diagrams: 06/10/20 16:44 06/10/20 16:44 Lab Results 06/10/20 06/10/20 Range/Units 16:44 16:44 WBC 6.8 (3.8-10.6) k/uL RBC 4.42 (3.80-5.40) m/uL Hgb 13.0 (11.4-16.0) gm/dL Hct 40.1 (34.0-46.0) % MCV 90.9 (80.0-100.0) fL MCH 29.3 (25.0-35.0) pg MCHC 32.3 (31.0-37.0) g/dL RDW 13.9 (11.5-15.5) % Plt Count 311 (150-450) k/uL Neutrophils % 54 % Lymphocytes % 36 % Monocytes % 5 % Eosinophils % 2 % Basophils % 1 % Neutrophils # 3.7 (1.3-7.7) k/uL Lymphocytes # 2.5 (1.0-4.8) k/uL Monocytes # 0.4 (0-1.0) k/uL Eosinophils # 0.2 (0-0.7) k/uL Basophils # 0.1 (0-0.2) k/uL Sodium 138 (137-145) mmol/L Potassium 3.8 (3.5-5.1) mmol/L Chloride 108 H (98-107) mmol/L Carbon Dioxide 25 (22-30) mmol/L Anion Gap 5 mmol/L BUN 15 (7-17) mg/dL Creatinine 0.78 (0.52-1.04) mg/dL Est GFR (CKD-EPI)AfAm >90 (>60 ml/min/1.73 sqM) Est GFR (CKD-EPI)NonAf >90 (>60 ml/min/1.73 sqM) Glucose 139 H (74-99) mg/dL Calcium 9.7 (8.4-10.2) mg/dL Total Bilirubin 0.2 (0.2-1.3) mg/dL AST 16 (14-36) U/L ALT 9 (4-34) U/L Alkaline Phosphatase 56 (38-126) U/L Creatine Kinase 63 (30-135) U/L Total Protein 7.4 (6.3-8.2) g/dL Albumin 4.4 (3.5-5.0) g/dL TSH 0.827 (0.465-4.680) mIU/L Disposition Clinical Impression: Depression Disposition: ADMITTED IP TO THIS [facility] Condition: Fair Decision Time: 20:06
[2020-06-10 16:53] LABS: Basophils # (A) 0.1 k/uL (0-0.2); Basophils % (A) 1 %; Eosinophils # (A) 0.2 k/uL (0-0.7); Eosinophils % (A) 2 %; HCT 40.1 % (34.0-46.0); Lymphocytes # (A) 2.5 k/uL (1.0-4.8); Lymphocytes % (A) 36 %; MCH 29.3 pg (25.0-35.0); MCHC 32.3 g/dL (31.0-37.0); MCV 90.9 fL (80.0-100.0); Mean Platelet Volume 6.8; Monocytes # (A) 0.4 k/uL (0-1.0); Monocytes % (A) 5 %; Neutrophils # (A) 3.7 k/uL (1.3-7.7); Neutrophils % (A) 54 %; Platelet Count 311 k/uL (150-450); RBC 4.42 m/uL (3.80-5.40); RDW 13.9 % (11.5-15.5); WBC 6.8 k/uL (3.8-10.6)
[2020-06-10 17:08] LABS: ALT 9 U/L (4-34); AST 16 U/L (14-36); African American GFR (CKD) >90 (>60 ml/min/1.73 sqM); Albumin 4.4 g/dL (3.5-5.0); Alkaline Phosphatase 56 U/L (38-126); Anion Gap 5 mmol/L; Blood Urea Nitrogen 15 mg/dL (7-17); Calcium 9.7 mg/dL (8.4-10.2); Carbon Dioxide 25 mmol/L (22-30); Chloride 108 mmol/L (98-107); Creatine Kinase 63 U/L (30-135); Glucose 139 mg/dL (74-99); Non-African American GFR(CKD) >90 (>60 ml/min/1.73 sqM); Potassium 3.8 mmol/L (3.5-5.1); Sodium 138 mmol/L (137-145); Total Bilirubin 0.2 mg/dL (0.2-1.3); Total Protein 7.4 g/dL (6.3-8.2)
[2020-06-10] MEDS ORDERED: MAG HYDROX/AL HYDROX/SIMETH 30 ML CUP PO PRN (19:43)
[2020-06-10] MEDS ORDERED: ZIPRASIDONE 20 MG VIAL IM PRN (19:43)
[2020-06-10] MEDS ORDERED: MAGNESIUM HYDROXIDE 2,400 MG/10 ML CUP PO PRN (19:43)
[2020-06-10] MEDS ORDERED: ACETAMINOPHEN TAB 325 MG TAB PO PRN (19:43)
[2020-06-10] MEDS ORDERED: LORazepam 1 MG TAB PO PRN (19:43)
[2020-06-10 23:00] LABS: Appearance,Urine Clear (Clear); Bilirubin,Urine Negative (Negative); Blood,Urine Negative (Negative); Color,Urine Colorless; Glucose,Urine (UA) Negative (Negative); Ketones,Urine Negative (Negative); Leukocyte Esterase,Urine Negative (Negative); Nitrite,Urine Negative (Negative); PH, Urine 6.5 (5.0-8.0); Protein,Urine Negative (Negative); Specific Gravity,Urine 1.002 (1.001-1.035); Urobilinogen,Urine <2.0 mg/dL (<2.0)
--- NOTE | 2020-06-11 03:29 | P.MDCNMH ---
History of Present Illness H&P Date: 06/11/20 Chief Complaint: medical evaluation 24 year old female with anxiety and depression patient currently not on any Psych meds. she reports overwhelming life stressors, she feels helpless denies suicidal ideation at this time. she feels very anxious and worried regarding their financial well being and regarding their health during the pandemic Medically , she reports symptoms suggestive of restless leg syndrome. she also reports random episodes of pain over her body, no specific triggers, and usually short lives episodes that lasts minutes and never disabling pain . she also reports fullness in her left ear, but have not affected her hearing. otherwise denies any fever, chills, chest pain , shortness of breath, abd pain , nausea or vomiting Past Medical History Past Medical History: No Reported History Additional Past Medical History / Comment(s): POST 04/25/19- BREAST FEEDING. History of Any Multi-Drug Resistant Organisms: None Reported Past Surgical History: No Surgical Hx Reported Past Anesthesia/Blood Transfusion Reactions: Motion Sickness Additional Past Anesthesia/Blood Transfusion Reaction / Comment(s): PATIENT HAS NEVER RECEIVED ANESTHESIA Smoking Status: Never smoker - Past Family History Mother Family Medical History: Diabetes Mellitus Additional Family Medical History / Comment(s): Bipolar, depression Father Additional Family Medical History / Comment(s): substance abuse, heart disease Brother(s) Additional Family Medical History / Comment(s): Hypotension Medications and Allergies Home Medications Medication Instructions Recorded Confirmed Type No Known Home Medications 06/10/20 06/10/20 History Allergies Allergy/AdvReac Type Severity Reaction Status Date / Time No Known Allergies Allergy Verified 06/10/20 22:31 Physical Exam Vitals: Vital Signs Temp Pulse Pulse Resp BP BP Pulse Ox 06/10/20 20:56 18 06/10/20 20:55 97.6 F 103 H 16 132/68 98 06/10/20 16:56 96 100 06/10/20 15:52 97.9 F 130 H 18 145/78 98 Intake and Output 06/10/20 06/10/20 06/11/20 14:59 22:59 06:59 Other: Weight 82.6 kg Constitutional: No acute distress, conversant, pleasant Eyes: Anicteric sclerae, moist conjunctiva, Pupils equal round reactive to light ENMT: NC/AT , otoscope exam showed sclresosis of bilateral ear drums with dullness to light reflex , left worse than right Oropharynx clear, no erythema, or exudates Neck: Supple, FROM, no masses, or JVD No carotid bruits No thyromegaly Lungs: Clear to auscultation Clear to percussion Normal respiratory effort, no accessory muscle use Cardiovascular: Heart regular in rate and rhythm, No murmurs, gallops, or rubs No peripheral edema Abdominal: Soft Nontender, no guarding, rebound or rigidity Abdomen moving with respiration Normoactive bowel sounds No hepatomegaly, No splenomegaly No palpable mass No abdominal wall hernia noted Skin: Normal temperature, tone, texture, turgor No induration No subcutaneous nodules No rash, lesions No ulcers Extremities: No digital cyanosis No clubbing Pedal pulses intact and symmetrical Radial pulses intact and symmetrical No calf tenderness Psychiatric: Alert and oriented to person, place and time Appropriate affect fair judgement Neuro Muscles Strength 5/5 in all 4 extremities Sensation to light touch grossly present throughout Cranial nerves II-XII grossly intact No focal sensory deficits Lymphatics: no palpable cervical or supraclavicular , or inguinal lymph nodes Cranial Nerve Examination - Cranial Nerves Cranial Nerve II- Optic: Intact Cranial Nerve III- Oculomotor: Intact Cranial Nerve IV- Trochlear: Intact Cranial Nerve V- Trigeminal: Intact Cranial Nerve - Abducens: Intact Cranial Nerve VII- Facial: Intact Cranial Nerve VIII- Auditory: Intact Cranial Nerve IX- Glossopharyngeal: Intact Cranial Nerve X- Vagus: Intact Cranial Nerve XI- Accessory: Intact Cranial Nerve XII- Hypoglossal: Intact Results CBC & Chem 7: 06/10/20 16:44 06/10/20 16:44 Labs: Abnormal Lab Results - Last 24 Hours (Table) 06/10/20 Range/Units 16:44 Chloride 108 H (98-107) mmol/L Glucose 139 H (74-99) mg/dL Assessment and Plan Assessment: depression , anxiety management per psych restless leg syndrome check iron studies and ferritin , goal ferritin >75 , replace iron if ferritin is <75 if ferritin normal , then consider Gabapentin 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 We will follow peripherally. Do not hesitate to contact us with questions. Someone can be reached from the [facility] hospitalist group at all hours of the day at [phone].
[2020-06-11 08:55] LABS: Basophils # (A) 0.1 k/uL (0-0.2); Basophils % (A) 1 %; Eosinophils # (A) 0.1 k/uL (0-0.7); Eosinophils % (A) 2 %; HCT 43.1 % (34.0-46.0); HGB 13.2 gm/dL (11.4-16.0); Hypochromasia Slight; Lymphocytes # (A) 2.9 k/uL (1.0-4.8); Lymphocytes % (A) 42 %; MCH 28.3 pg (25.0-35.0); MCHC 30.6 g/dL (31.0-37.0); MCV 92.4 fL (80.0-100.0); Mean Platelet Volume 6.4; Monocytes # (A) 0.3 k/uL (0-1.0); Monocytes % (A) 5 %; Neutrophils # (A) 3.3 k/uL (1.3-7.7); Neutrophils % (A) 48 %; Platelet Count 294 k/uL (150-450); RBC 4.66 m/uL (3.80-5.40); WBC 6.8 k/uL (3.8-10.6)
[2020-06-11 09:06] LABS: ALT 9 U/L (4-34); AST 21 U/L (14-36); African American GFR (CKD) >90 (>60 ml/min/1.73 sqM); Albumin 4.5 g/dL (3.5-5.0); Alkaline Phosphatase 59 U/L (38-126); Anion Gap 10 mmol/L; Blood Urea Nitrogen 11 mg/dL (7-17); Calcium 9.8 mg/dL (8.4-10.2); Carbon Dioxide 23 mmol/L (22-30); Chloride 109 mmol/L (98-107); Cholesterol 196 mg/dL (<200); Glucose 98 mg/dL (74-99); HDL Cholesterol 45 mg/dL (40-60); LDL Cholesterol,Calculated 136 mg/dL (0-99); Non-African American GFR(CKD) >90 (>60 ml/min/1.73 sqM); Potassium 4.2 mmol/L (3.5-5.1); Sodium 142 mmol/L (137-145); Total Bilirubin 0.5 mg/dL (0.2-1.3); Total Protein 7.6 g/dL (6.3-8.2); Triglycerides 77 mg/dL (<150)
[2020-06-11 09:25] LABS: Urine Alcohol Negative (Negative); Urine Barbiturate Negative (Negative); Urine Cocaine Negative (Negative); Urine Methadone Negative (Negative); Urine Opiates Negative (Negative); Urine Phencyclidine Negative (Negative)
[2020-06-11] MEDS ORDERED: TEMAZEPAM 15 MG CAP PO PRN (10:03)
[2020-06-11] MEDS: VENLAFAXINE HCL ER 37.5 MG CAP PO SCH (10:53)
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
[2020-06-11 14:34] LABS: % Iron Saturation 11.53 (12.00-45.00); Iron 40 ug/dL (50-170); Total Iron Binding Capacity 347 ug/dL (228-460)
[2020-06-11 14:44] LABS: Ferritin 53.6 ng/mL (10.0-291.0)
[2020-06-11 15:39] LABS: Hemoglobin A1C 5.6 % (4.0-6.0)
[2020-06-12 06:36] VITALS: RESP 14
[2020-06-12] MEDS: VENLAFAXINE HCL ER 37.5 MG CAP PO SCH (08:54)
[2020-06-12] MEDS: VENLAFAXINE HCL ER 75 MG CAP PO SCH (10:44)
[2020-06-12] MEDS ORDERED: VENLAFAXINE HCL ER 37.5 MG CAP PO STA (10:44)
--- NOTE | 2020-06-12 11:59 | P.PN ---
Progress Note - Text Progress Note Date: 06/12/20 Clinical Problems: Major depressive disorder severe without psychotic features, rule out panic disorder, probable posttraumatic stress disorder, rule out cannabis use disorder Interim history: I reviewed the medical record, interviewed the patient and discussed her treatment and treatment plan during team meeting. She reported continued poor sleep, continued anxiety and restlessness, crying spells and feelings of hopelessness and helplessness. She felt the temazepam reduced her anxiety "somewhat" but would not allow her to have a restful sleep. Even though nursing reported 7 hours of sleep she alleged he slept 2 hours. She described frequent awakening and frequent nightmares. During this interview she introduced other issues such as ongoing difficulties with organizing herself completing tasks, maintaining sustained attention. She suggested that I consider prescribing her Klonopin and Adderall (she talked about her mother giving her clonazepam and "a friend" giving her Adderall). I explained that we could continue discussing Klonopin for anxiety but under no circumstances would prescribe her Adderall. She denied side effects initial dose of Effexor. Mental status exam: She presented as a casually groomed young female who was frequently tearful during interview. She is able to remain seated and attended to the interview however. Her speech was spontaneous consistent with her affect. Affect was depressed and anxious. She denied suicidal ideation or wishes. She did not express psychotic symptoms such as ideas reference, paranoid ideation or delusions. Her thinking was abstract and associations are coherent and logical. She denied hallucinations and did not appear to be responding to internal stimuli. Assessment: Has been no significant change in her overall clinical status from admission. She continues report subsequent depression and anxiety that interferes with her ability to function. Plan: continue inpatient treatment. Discontinue temazepam. Increase Effexor to 75 mg daily. Begin a trial of Seroquel 80 mg at bedtime and titrated according to clinical response and tolerance. Discontinue Ativan 1 mg by mouth 3 times a day and begin a trial of clonazepam 0.5 mg twice a day when necessary for anxiety. Consider trial prazosin at nighttime if she continues complaining of nightmares interfering with her sleep. Encourage participation in therapeutic groups and activities. Evaluate clinical status response to treatment daily basis.
[2020-06-12] MEDS ORDERED: QUEtiapine 50 MG TAB PO SCH (21:00)
[2020-06-13] MEDS: VENLAFAXINE HCL ER 75 MG CAP PO SCH (08:29)
[2020-06-13] MEDS: clonazePAM 0.5 MG TAB PO PRN (08:56)
[2020-06-13] MEDS ORDERED: ZOLPIDEM 5 MG TAB PO PRN (10:23)
--- NOTE | 2020-06-13 11:33 | P.PN ---
Progress Note - Text Progress Note Date: 06/13/20 Clinical Problems: Major depressive disorder severe without psychotic features, rule out panic disorder, probable post stress disorder, cannabis use disorder, rule out borderline personality disorder Interim history: I reviewed the medical record, interviewed the patient and discuss her treatment and treatment plan during team. She can complained that she was unable to sleep last night even though nursing reports 7 hours of sleep. She became overly distressed when I mentioned that nursing to document that she slept 7 hours. She expressed concerned that we must consider her crazy because she doesn't feel she is sleeping. She expressed continued feelings of hopelessness and helplessness without suicidal intent or plan. She complained that she is unable to concentrate and is frustrated with even simple tasks such as attempting to read, watch television or covert an adult coloring book. She complains of irritability and restlessness this morning after taking the 50 mg dose of Seroquel last night. She alleged that the Seroquel does not help her fall asleep or maintain sleep continuity. She was acutely distressed after an interaction with a new admission. She had difficulty controlling her distress or regulating her emotions. Mental status exam: She presented as a young dark-haired woman who was acutely distressed and cried intermittently during interview. She appears somewhat disheveled this morning. She perseverated about her subjective experience of insomnia, difficulty with calming her mind before she falls asleep and increasing anxiety and irritability this morning. Her speech was spontaneous and consistent with her mood. Her affect was labile and at times intense but not inappropriate. She denied suicidal ideation or wishes. She denied side effects psychotic symptoms such as ideas reference, paranoid ideation or delusions. Her thinking was abstract and associations were coherent. She denied hallucinations didn't appear to responding to internal stimuli. Assessment: The patient continues to have signs and symptoms of depression with marked anxiety. She continues use half insomnia with frequent awakenings and frequent nightmares. Plan: inpatient treatment. Continue suicide precautions. Continue Effexor XR 75 mg daily and titrated according to clinical response and tolerance. Discontinue Seroquel. Begin Minipress 2 mg at bedtime and Ambien 5 mg at bedtime when necessary for sleep. Continue Klonopin 0.5 mg twice a day when necessary for anxiety. Provide information about DBT and discuss a referral for outpatient DBT. Encourage participation in therapeutic groups and activities. Evaluate clinical status response to treatment daily basis.
[2020-06-13] MEDS ORDERED: PRAZOSIN 1 MG CAP PO SCH (21:00)
[2020-06-13 21:19] VITALS: BP 136/84; PULSE 113
[2020-06-13 21:43] VITALS: TEMP 99.1
[2020-06-14] MEDS ORDERED: SODIUM CHLORIDE 0.9% 1,000 ML IV ONE ×2 (05:38)
--- NOTE | 2020-06-14 05:44 | P.PN ---
Progress Note - Text Progress Note Date: 06/14/20 called by RN to evaluate patient feeling dizzy and had one episode of vomiting patient feels upset stomach, and little dizzy, but denies any diarrhea , abd pain , or URI symptoms, denies nay body aches vomiting non bloody or bilious she had received one dose of minipress , a new medication to her, and could have contributed in drop in her blood pressure along with reflex tachycardia exam BP 94/58, HR 130, Oxygen 96% on RA Lungs clear to auscultation no wheezing CVS tachycardia , normal S1 S2, no murmur, pulses equal bilateral radial artery , no leg edema General pleasant , cooperative, awake, Psych alert, oriented to place time and person abd, no tenderness to palpation , soft abd plan EKG 1 L normal saline bolus labs reviewed , unremarkable ferritin <75 , with suspected restless leg syndrome discussed with patient a trial of Iron supplementation PO , Goal is to raise her ferritin to above 75 and re-evaluate her restless leg syndrome, which can help resolved her symptoms consider iron PO bid for 3 months and re - evaluate , if ferritin > 75 and symptoms resolve, consider stopping the Iron PO supplementation then if restless legs continue despite correcting her ferritin, then consider starting Gabapentin
[2020-06-14] MEDS ORDERED: FERROUS SULFATE 325 MG TAB PO SCH (07:30)
[2020-06-14] MEDS: VENLAFAXINE HCL ER 75 MG CAP PO SCH (08:56)
[2020-06-14] MEDS: clonazePAM 0.5 MG TAB PO PRN (08:59)
--- NOTE | 2020-06-14 11:43 | P.DS ---
Providers Date of admission: 06/10/20 19:37 Attending physician: Lauri Rojas MD Consults: 06/10/20 19:43 Consult Physician Routine Consulting Provider: Samuel Physician Consult Reason/Comments: medical management Do you want consulting provider notified?: Yes Primary care physician: Stated None - Discharge Diagnosis(es) (1) Major depressive disorder, recurrent severe without psychotic features Current Visit: Yes Status: Acute Priority: Medium (2) Chronic insomnia Current Visit: Yes Status: Chronic Priority: Medium (3) Cannabis use disorder, moderate, dependence Current Visit: Yes Status: Chronic Priority: Medium (4) Financial problems Current Visit: Yes Status: Acute Priority: High Hospital Course: HISTORY: She is a single 24-year-old female admitted to psychiatric unit voluntarily with complaints of increasing depression and anxiety. She reported that she has been struggling with depression and anxiety since she was young adolescent possibly 11 or 12 years old. The depression and anxiety fluctuations intensity usually related to interpersonal and financial stressors. She reports became overwhelmed and unable to manage her anxiety when she learned that her fianc has not been paying the rent. She complained that he has been "secretive" in the past and she thought that his they had worked through these problems. Before admission she spoke with the landlord who informed her that they were behind approximately $600 in rent. when she confronted him he admitted that he had lost a job and was unable to pay the rent. She was angry because she was not again on us with her and if she had no that he was unable to pay the rent that she could've "picked up" more work. She complained of feeling depressed but denied having thoughts of or suicide. She feels frustrated and overwhelmed Her primary complaint was somatic and psychiatric anxiety. She feels restless, irritable and impatient. She is finding herself less and less tolerant to her children. She is unable to sleep and describes his psychiatric symptoms. Some of her mind is racing. She described classic symptoms of depression including. His sleep, appetite, energy, concentration and guilt. She denied experiencing such psychotic symptoms as hallucinations, paranoia, ideas reference, etc. She described episodes of increased anxiety but it is not clear whether she is experiencing to panic attacks. She denied obsessions or compulsions. She denied use of drugs except marijuana. She denied use of alcohol. She smokes approximately 1-2 g of marijuana per week. She is aware luis alberto t cannabis can worsen anxiety but is unable to stop because he her anxiety worsens when she does not use cannabis. She has a history of depression beginning at age 11 or 12. She was admitted to this unit in November 2016 suicide attempt by overdose ofacetaminophen and iron supplement. Her discharge diagnoses included major depressive disorder and post manic stress disorder. She continued outpatient treatment mental health treatment after discharge but has not been engaged with mental health services recently. HOSPITAL COURSE: We admitted her to the psychiatric unit under care of this senior copywriter. We provided a comprehensive biopsychosocial assessment. The fundraising consultant defensive secondary coach completed initial physical exam and medical history and diagnosed the restless leg syndrome and anemia. Her serum iron was 40 and a percent saturation was 11.53. He recommended iron supplement. We treated depression with Effexor XR titrating dose of 75 mg daily. A primary complaint throughout the hospitalization was poor sleep with difficulty falling asleep, frequent awakenings and awakening feeling tired. Her sleep did not improve with a trial of Restoril and worsened with Seroquel. Her sleep was less disruptive with 2 mg of Minipress and 5 mg of Ambien. However she experienced nausea and lightheadedness the morning after the first dose of Minipress. She requested to continue the Minipress is was effective in reducing the frequency of nightmares and awakenings. We discussed options for treatment of her chronic sleep problems and she agreed to referral for sleep study and sleep evaluation. She p articipated in therapeutic groups and activities. She posed no management problems and had no episodes of behavioral dyscontrol. MENTAL STATUS ON DISCHARGE: Time of discharge she presented as a casually groomed young female with short dark hair. She made eye contact and attended the interview. She had no prominent physical abnormalities. She had a blunted but bright facial expression. She was alert and oriented to person, place and time. She had slight psychomotor retardation but no abnormal involuntary movements. Her speech was spontaneous with normal rate, rhythm and volume. Her affect was anxious but appropriate. She denied suicidal ideation and wishes. She denied homicidal ideation. She denied feeling hopeless or helpless. She ruminated about her financial and interpersonal problems and her chronic and persistent difficulty with sleep. She did not express ideas reference, paranoid ideation or delusions. Her thinking was abstract and associations were coherent, logical goal-directed. She denied hallucinations and responding to internal stimuli. DISPOSITION: She discharged her prior address. Discharge medications included Effexor XR 75 mg daily, Minipress 2 mg at bedtime and clonazepam 0.5 mg twice a day when necessary for sleep or anxiety. We gave her a referral for an outpatient sleep evaluation. She plans to resume counseling through [facility] services. Patient Condition at Discharge: Stable Plan - Discharge Summary Discharge Rx Participant: No New Discharge Prescriptions: New Venlafaxine HCl ER [Effexor XR] 75 mg PO DAILY #30 cap.er.24h Ferrous Sulfate [Iron (65 MG Elemental)] 325 mg PO BID-W/MEALS #30 tab clonazePAM [KlonoPIN] 0.5 mg PO BID PRN #60 tab PRN Reason: Anxiety Prazosin [Minipress] 2 mg PO HS #30 cap Discharge Medication List Ferrous Sulfate [Iron (65 MG Elemental)] 325 mg PO BID-W/MEALS #30 tab 06/14/20 [Rx] Prazosin [Minipress] 2 mg PO HS #30 cap 06/14/20 [Rx] Venlafaxine HCl ER [Effexor XR] 75 mg PO DAILY #30 cap.er.24h 06/14/20 [Rx] clonazePAM [KlonoPIN] 0.5 mg PO BID PRN #60 tab 06/14/20 [Rx] Follow up Appointment(s)/Referral(s): None,Stated [Primary Care Provider] - 1-2 days Activity/Diet/Wound Care/Special Instructions: Activity and diet as tolerated. Avoid the use of street drugs and alcohol. Take all medications as prescribed. When you are in need of refills on your medications please contact your medical provider and/or outpatient psychiatrist to have this done. Please go to scheduled outpatient appointment for aftercare treatment. If symptoms return or become worse, call the crisis line at and/or go to the nearest emergency room for evaluation. Discharge Disposition: HOME SELF-CARE
== END 2020-06-14 13:15 | disposition home or self-care (01) | DRG 885 ==
LOC: EC 15:48 → 3MHU 19:37
PROVIDERS: ADMIT Psychiatry & Neurology Psychiatry; ATTEND Psychiatry & Neurology Psychiatry
DX: F33.2 Major depressive disorder, recurrent severe without psychotic features (principal); F41.9 Anxiety disorder, unspecified; F17.200 Nicotine dependence, unspecified, uncomplicated; G25.81 Restless legs syndrome; F51.5 Nightmare disorder; F51.04 Psychophysiologic insomnia; F43.9 Reaction to severe stress, unspecified; F12.20 Cannabis dependence, uncomplicated; Z83.3 Family history of diabetes mellitus; Z81.8 Family history of other mental and behavioral disorders; Z82.49 Family history of ischemic heart disease and other diseases of the circulatory system; Z91.5 Personal history of self-harm; Z98.51 Tubal ligation status; Z59.9 Problem related to housing and economic circumstances, unspecified
CPT/HCPCS: 36415; 80053; 80061; 80306; 81003; 81025; 82075; 82550; 82728; 83036; 83540; 83550; 84443; 85025; 90686; 99285